=== PATIENT | female | born 1975 | race Two or more races ===

== ENCOUNTER 2016-12-12 22:26 | Emergency (ER) | payer SELFPAY ==
[~2016-12-12] VITALS: Ht 167.6 cm; Wt 66.0 kg
[2016-12-13 01:15] VITALS: BP 122/69
[2016-12-13] MEDS ORDERED: MORPHINE SULFATE 10 MG/ML CPJ IM ONE (01:15)
[2016-12-13] MEDS ORDERED: ONDANSETRON 4MG ODT PO ONE (04:45)
[2016-12-13] MEDS ORDERED: METOCLOPRAMIDE HCL 10MG/2ML VIAL IV ONE (05:45)
== END 2016-12-13 07:40 | disposition home or self-care (01) ==
LOC: ER 23:27
DX: S02.2XXA Fracture of nasal bones, initial encounter for closed fracture (principal); H53.8 Other visual disturbances; H57.12 Ocular pain, left eye; Y00.XXXA Assault by blunt object, initial encounter; Y93.89 Activity, other specified; Y92.098 Other place in other non-institutional residence as the place of occurrence of the external cause
CPT/HCPCS: 70486; 81025; 96372; 96374; 99284; A4217; J2270; J2765; Q0162; Z7610